=== PATIENT | male | born 1940 | race African-American/Black ===

== ENCOUNTER 2019-03-16 12:04 | Day surgery (SDC) | payer MEDICARE, BC ==
--- NOTE | 2019-03-15 21:35 | Pre-Procedure Note/Attestation ---
Pre-Procedure Note/Attestation Complete Prior to Procedure Planned Procedure: left Procedure Narrative: Removal of cataract and placement of intraocular lens, left eye Indications for Procedure Pre-Operative Diagnosis: dense, combined cataract Attestation I attest that I discussed the nature of the procedure; its benefits; risks and complications; and alternatives (and the risks and benefits of such alternatives ), prior to the procedure, with the patient (or the patient's legal retail field representative). I attest that, if there was a reasonable possibility of needing a blood transfusion, the patient (or the patient's legal retail field representative) was given the [facility] standardized written summary, pursuant to the Jean [place]elv[place] Blood Safety Act ([place] Health and Safety Code # 1645, as amended). I attest that I re-evaluated the patient just prior to the surgery and that there has been no change in the patient's H&P, except as documented below: Preston Hatfield MD Mar 15, 2019 21:35
[2019-03-16] VITALS (10 sets, daily range): BP systolic 152–177; BP diastolic 71–91
[~2019-03-16] VITALS: Ht 175.3 cm; Wt 95.3 kg
[~2019-03-16 12:04] MED LIST: Acetylcholine Injection (OR) ONE; BSS 15ml BTL ONE; BSS 500ml btl ONE; Carbachol 0.01% Op Soln 1.5ml vial ONE; Dexamethasone 4mg/ml vial ONE; EPINEPHrine 1mg/1ml Amp ONE; Fluorescein Strips ONE; Lidocaine 1% MPF 10mg/ml 5ml ONE; Polysporin Opth Oint 3.5gm ONE; Povidone-Iodine 5% opth solution ONE; Pred Forte 1% Opth Susp 1ml ONE; Sodium Hyaluronate 10 mg/ml 0.85ml ONE
[2019-03-16] MEDS ORDERED: Tetracaine 0.5% Opth 4ml Soln ONE ×2 (12:21→12:58)
--- NOTE | 2019-03-16 12:35 | Anethesia Preoperative Eval ---
Anesthesia Pre-op PMH/ROS General Date of Evaluation: Mar 16, 2019 Anesthesiologist: Julian ASA Score: ASA 3 Mallampati Score Class I : Soft palate, uvula, fauces, pillars visible Class II: Soft palate, uvula, fauces visible Class III: Soft palate, base of uvula visible Class IV: Only hard plate visible Mallampati Classification: Class III Surgeon: Liu Diagnosis: left cataract Surgical Procedure: left cataract extraction with iol Anesthesia History: none Family History: no anesthesia problems Allergies: Uncoded Allergies: shellfish (Allergy, Intermediate, 03/15/19) hives Medications: see eMAR Patient NPO?: Yes NPO Date: Mar 15, 2019 NPO Time: 22:00 Past Medical History Cardiovascular: Reports: HTN, other - HLD; Denies: CAD, CO, valve dz, arrhythmia Pulmonary: Denies: asthma, COPD, MAC, other Gastrointestinal/Genitourinary: Reports: GERD; Denies: CRI, ESRD, other Neurologic/Psychiatric: Denies: dementia, CVA, depression/anxiety, TIA, other Endocrine: Reports: DM, hypothyroidism; Denies: steroids, other HEENT: Reports: cataract (L), cataract (R); Denies: glaucoma, [place] (L), [place] (R), other Hematology/Immune: Reports: anemia, other - multiple myeloma; Denies: DVT, bleeding disorder Musculoskeletal/Integumentary: Denies: OA, RA, DJD, DDD, edema, other PSxH Narrative: left eye pterygium excision, prostatectomy Anesthesia Pre-op Phys. Exam Physician Exam see chart Constitutional: NAD Cardiovascular: RRR Respiratory: CTA Airway Exam Mallampati Score: Class III MO: limited ROM: limited Anesthesia Pre-op A/P Labs see chart Studies Pre-op Studies: EKG - nsr with rbbb Risk Assessment & Plan Assessment: ASA III Plan: MAC Status Change Before Surgery: No Pre-Antibiotics Drug: N//A Katina Zuñiga MD Mar 16, 2019 12:35
[2019-03-16] MEDS ORDERED: Tropicamide 1% Opth 15ml Soln ONE (12:58)
[2019-03-16] MEDS ORDERED: Cyclopentolate 1% Opth Sol 2ml ONE (12:58)
[2019-03-16] MEDS ORDERED: Ciprofloxacin Opth Soln 2.5ml ONE (12:58)
[2019-03-16] MEDS ORDERED: Phenylephrine 10% Opth Soln 5ml ONE (12:58)
[2019-03-16] MEDS ORDERED: Tobradex Opth Susp 2.5ml ONE (12:58)
[2019-03-16] MEDS ORDERED: Akten 3.5% 1ml Btl ONE (12:58)
[2019-03-16 13:03] LABS: BASOPHILS % (AUTO) 1.6 % (0.0-2.0); HEMOGLOBIN 8.6 G/DL (14.2-18.0); LYMPHOCYTES % (AUTO) 17.8 % (20.0-45.0); MEAN CORPUSCULAR VOLUME 94 FL (80-99); MONOCYTES % (AUTO) 10.1 % (1.0-10.0); NEUTROPHILS % (AUTO) 69.6 % (45.0-75.0); PLATELET COUNT 164 K/UL (150-450); RED BLOOD COUNT 2.86 M/UL (4.70-6.10); RED CELL DISTRIBUTION WIDTH 17.7 % (11.6-14.8); WHITE BLOOD COUNT 6.1 K/UL (4.8-10.8)
[2019-03-16] MEDS: Akten 3.5% 1ml Btl LEFT EYE SCH ×3 (13:03→13:26)
[2019-03-16] MEDS: Phenylephrine 10% Opth Soln 5ml LEFT EYE SCH ×3 (13:04→13:27)
[2019-03-16] MEDS: Ciprofloxacin Opth Soln 2.5ml LEFT EYE SCH ×3 (13:04→13:26)
[2019-03-16] MEDS: Tropicamide 1% Opth 15ml Soln LEFT EYE SCH ×3 (13:04→13:27)
[2019-03-16] MEDS: Cyclopentolate 1% Opth Sol 2ml LEFT EYE SCH ×3 (13:04→13:27)
[2019-03-16] MEDS: Tetracaine 0.5% Opth 4ml Soln LEFT EYE SCH ×3 (13:05→13:27)
[2019-03-16] MEDS: Tobradex Opth Susp 2.5ml LEFT EYE SCH ×3 (13:05→13:27)
[2019-03-16] MEDS ORDERED: Midazolam 2mg/2ml Inj ONE (13:09)
[2019-03-16] MEDS ORDERED: Propofol 200mg/20ml IV ONE (13:09)
[2019-03-16] MEDS ORDERED: Lidocaine 1% MPF 10mg/ml 5ml ONE (13:09)
[2019-03-16] MEDS ORDERED: fentaNYL 100 mcg/2 mL IV ONE (13:09)
[2019-03-16] MEDS ORDERED: DiphenhydrAMINE 50mg/ml Inj ONE (13:10)
[2019-03-16 13:17] LABS: INR 1.1 (0.9-1.1)
[2019-03-16 13:19] LABS: ANION GAP 12 mmol/L (5-15); BLOOD UREA NITROGEN 31 mg/dL (7-18); CALCIUM 8.2 MG/DL (8.5-10.1); CARBON DIOXIDE 24 MMOL/L (21-32); CHLORIDE 108 MMOL/L (98-107); CREATININE 3.1 MG/DL (0.55-1.30); POTASSIUM 3.9 MMOL/L (3.5-5.1); SODIUM 144 MMOL/L (136-145)
[2019-03-16] MEDS ORDERED: LR 1000ml ONE (14:00)
[2019-03-16] MEDS ORDERED: Sterile Water Irrig 1000ml IRRIG ONE (14:00)
[2019-03-16] MEDS ORDERED: NS Irrig 1000ml ONE (14:00)
[2019-03-16] MEDS ORDERED: LR 1000ml 1,000 ML IVLG SCH (14:04)
[2019-03-16] MEDS ORDERED: DiphenhydrAMINE 50mg/ml Inj IVP PRN (14:15)
[2019-03-16] MEDS ORDERED: EPINEPHrine 1mg/1ml Amp ONE (14:38)
[2019-03-16] MEDS ORDERED: BSS 500ml btl ONE (14:38)
[2019-03-16] MEDS ORDERED: Sodium Hyaluronate 10 mg/ml 0.85ml ONE (14:47)
--- NOTE | 2019-03-16 15:06 | Immediate Post-Op Evaluation ---
Immediate Post-Op Evalulation Immediate Post-Op Evalulation Procedure: left cataract extraction with iol Date of Evaluation: Mar 16, 2019 Time of Evaluation: 15:08 IV Fluids: 200 Blood Products: 0 Estimated Blood Loss: 0 Urinary Output: 0 Blood Pressure Systolic: 165 Blood Pressure Diastolic: 75 Pulse Rate: 52 Respiratory Rate: 16 O2 Sat by Pulse Oximetry: 100 Temperature (Fahrenheit): 97 Pain Score (1-10): 0 Nausea: No Vomiting: No Complications 0 Patient Status: awake, reacts, patent, none Hydration Status: adequate Drug: N/A Katina Zuñiga MD Mar 16, 2019 15:06
--- NOTE | 2019-03-16 15:07 | 48 Hour Post Anesthesia Eval ---
Post Anesthesia Evaluation Procedure: left cataract extraction with iol Date of Evaluation: Mar 16, 2019 Airway: patent Nausea: No Vomiting: No Hydration Status: adequate Cardiopulmonary Status: at baseline Mental Status/LOC: patient returned to baseline Post-Anesthesia Complications: 0 Follow-up care needed: ready to discharge Katina Zuñiga MD Mar 16, 2019 15:07
--- NOTE | 2019-03-16 15:10 | Discharge Instructions ---
Discharge Instructions Discharge Instructions Follow Up Orders Wear shield at all times except to place eye drops Continue pre op eye drops Followup in Dr Hatfield's office tomorrow For Congestive Heart Failure Reminder Report to your physician any weight gain of 5 pounds or more in one week. Preston Hatfield MD Mar 16, 2019 15:10
--- NOTE | 2019-03-16 15:12 | Brief Operative Note ---
Immediate Post Operative Note Operative Note Pre-op Diagnosis: dense, combined cataract Procedure: Phaco PC IOL OS Use of 7.0 Malyugian ring Post-op Diagnosis: same as pre-op plus - Pt with h/o flomax use and has miotic pupil Surgeon: Dar Hatfield MD Anesthesiologist: Dr Villarreal Anesthesia: local, MAC Specimen: none Complications: none Fluids: see chart Implant(s) used?: Yes - jenny [id number] 22.5 Preston Hatfield MD Mar 16, 2019 15:12
--- NOTE | 2019-03-18 11:54 | Pre-op HX & Phy Repo 2 SIG ---
DATE OF ADMISSION: 03/16/2019 PRESURGICAL INTERNAL MEDICINE HISTORY AND PHYSICAL DATE OF EVALUATION: 03/16/2019 REASON FOR EVALUATION: I was asked by Dr. Preston Hatfield to see this 78-year-old male, who is going for elective surgery on the left eye. The patient has nuclear sclerotic left eye cataract. Please see full Ophthalmology History and Physical by Dr. Preston Hatfield. The patient was evaluated, chart was reviewed at [facility] outpatient procedure department. The patient is a 78-year-old male, alert, well-developed, overweight. BMI is 31.0 kg/m sq. Complained of progressive vision loss on the left eye due to cataract. PAST MEDICAL HISTORY AND REVIEW OF SYSTEMS: Remarkable for history of hypertension, history of palpitations, GERD, history of hypothyroidism, renal insufficiency, multiple myeloma in the stage of recovery, history of diabetes, mellitus type 2. Denies history of heart attack or stroke. PAST SURGICAL HISTORY: Left eye cataract surgery, prostatectomy for BPH, coronary angiogram, and laser treatment for palpitations. FAMILY HISTORY: Mother from stomach cancer and father from bone cancer. ALLERGIES: Shellfish, developed . PRESENT MEDICATION: Losartan 25 mg, amlodipine 5 mg, amiodarone 200 mg, acyclovir 200 mg, baby aspirin 81 mg daily and stopped six days ago, atorvastatin 20 mg, calcitriol 0.25 mcg, calcium and magnesium supplements, carvedilol 25 mg daily, Eliquis 2.5 mg daily and stopped six days ago, fluconazole daily, Klor-Con 10 mEq daily, lansoprazole 20 mg daily, levothyroxine 25 mcg daily, ranitidine 150 mg twice a day, tamsulosin 0.4 mg at bedtime. HABITS: The patient smoked for about 10 years . Denied alcohol or street drug use. PHYSICAL EXAMINATION: GENERAL: Alert, overweight male, weight 210 pounds and 5 feet 9 inches tall. BMI is 31 kg/m sq. VITAL SIGNS: Blood pressure 172/84, temperature 97, pulse 50, O2 saturation 99% on room air. SKIN: Dry, clear, warm. No rashes. No ulcers. HEENT: Head is normocephalic, bold. Mouth, clear and moist. Tongue midline. Eyes, full description per Dr. Preston Hatfield. Ears, nose, no discharge. NECK: Supple. No jugular vein distention. Carotids artery +2. Trachea midline. CHEST: No deformity or asymmetry. LUNGS: Clear to auscultation to percussion. No rales or rhonchi. HEART: Sinus bradycardia. No ectopy. No murmur. No S3, S4. ABDOMEN: Soft, obese. Liver and spleen not enlarged. No rebound. EXTREMITIES: No varicose vein. No calf tenderness. No edema. GENITOURINARY: Normal for gender. Post prostatectomy. NEUROLOGIC: No tremor. No nystagmus. No asymmetry. LABORATORY AND DIAGNOSTIC DATA: Electrocardiogram dated 02/10/2019, normal sinus rhythm, left axis deviation, right bundle-branch block with left-axis deviation. The patient did not eat or drink from 8:30 p.m. yesterday, fasting blood sugar 178 mg/dL. White blood cells of 6.1, hemoglobin 8.6, hematocrit 27.0, red blood cells 2.86. BUN 31, creatinine 3.1. Potassium 3.9, sodium 144. PT 11.3, INR 1.1. Blood sugar 175 mg/dL. IMPRESSION: 1. Cataract, left eye. 2. Hypertension. 3. Diabetes mellitus. 4. Chronic renal disease. 5. Anemia. 6. Hypothyroidism. 7. Type 2 diabetes mellitus, not treated. 8. multiple myeloma. 9. Sinus bradycardia with history of palpitations. PLAN: Cataract extraction, left eye with intraocular lens implant per Dr. Preston Hatfield. CONCLUSION: The patient has multiple medical problems include history of diabetes, multiple myeloma, and chronic renal disease and the complication of renal insufficiency and anemia, the patient did not eat or drink from last night Thank you very much, Dr. Hatfield, for privilege to participate in presurgical care of this interesting patient. Monie Thomas M.D. DR: ALFRED JOB#: [id number] CC:
--- NOTE | 2019-03-18 11:54 | Operative Note - Dictated ---
DATE OF OPERATION: 03/16/2019 SURGEON: Preston Hatfield M.D. BAR MACHINE OPERATOR SURGEON: None. ANESTHESIOLOGIST: Dr. Villarreal. ANESTHESIA: Local/standby/monitored anesthesia care. PREOPERATIVE DIAGNOSES: 1. Cataract, senile, combined, left eye. 2. Floppy iris syndrome. POSTOPERATIVE DIAGNOSES: 1. Cataract, senile, combined, left eye. 2. Floppy iris syndrome. PROCEDURES: 1. Phacoemulsification of cataract, left eye. 2. Placement of posterior chamber intraocular lens, left eye (model [id number], power 22.5). 3. Use of Malyugin ring (7.0 mm). SPECIMENS: None. COMPLICATIONS: None. INDICATIONS FOR SURGERY: The patient has had the painless progressive decrease in visual acuity in the left eye secondary to cataract. The patient understands the risk of surgery including infection, bleeding, need for further surgery, loss of vision, no improvement in vision, loss of the eye, loss of life, glaucoma, and retinal detachment, understands these risks and elects to proceed with surgery. FINDINGS: The patient had a floppy iris syndrome with the pupil dilated minimally to approximately 4 mm and necessitated the use of the Malyugin ring. The patient had a +3 cortical cataract as well as a +4 nuclear cataract, and +1 to 2 posterior subcapsular cataract. OPERATIVE NOTE: After informed consent was obtained, the patient was brought into the operative room and placed in supine position. Cardiac and respiratory monitors were attached. A time-out was performed and all criteria were met and everyone in the room agreed. The left eye was then draped and prepped in sterile manner for ocular surgery. A lid speculum was placed in eye. A 1% lidocaine preservative-free was injected at the approximate 2 o'clock limbus. A conjunctiva peritomy from approximately 2 o'clock to 3 o'clock was made and dissected posteriorly. Hemostasis was maintained with bipolar cautery. A 2.8 mm limbal incision was made centered approximately 2:30 and dissected anteriorly. A paracentesis was made at approximately 5:30 and Shugarcaine was injected into the anterior chamber. Healon was then injected into the anterior chamber. The anterior chamber was then entered using a 2.8 mm keratome through the limbal incision. Because of the small pupil and it did not dilate well despite using 1% atropine drops, a 7.0 Malyugin ring was placed and hooked onto the 4 points of the pupillary margin. An anterior capsulorrhexis was then performed. Hydrodissection and hydrodelineation of the lens was then performed. The lens was then phacoemulsified using divide and conquer four-quadrant technique. This was a very dense cataract. Cortical material was then aspirated. The lens was taken from its package, placed into the cartridge and tip of the cartridge was placed through the limbal incision and the lens was injected into the capsular bag and centered nicely with a Sinskey hook. The lens was placed into the 3 o'clock and 9 o'clock meridian. The Malyugin ring was then removed and Miostat was injected into the anterior chamber to bring the pupil round. One 10-0 nylon interrupted suture was then placed through the limbal incision and the knot was rotated and buried. The wounds were hydrated closed. The wounds were checked and found to be watertight. The conjunctiva was closed with forceps cautery. The lid speculum and drapes were removed from the eye and drops of TobraDex, ciprofloxacin and Pred Forte were applied to the eye followed by Maxitrol ointment and then a shield. The patient tolerated the procedure well and left the operating room awake, alert, and in stable condition. Preston Hatfield M.D. DR: AKANKSHA JOB#: [id number] CC:
== END 2019-03-16 17:00 | disposition home or self-care (01) ==
LOC: SUR 12:04
DX: H25.12 Age-related nuclear cataract, left eye (principal); H25.012 Cortical age-related cataract, left eye; H21.81 Floppy iris syndrome; H25.042 Posterior subcapsular polar age-related cataract, left eye; E66.3 Overweight; R00.1 Bradycardia, unspecified; I45.10 Unspecified right bundle-branch block; I12.9 Hypertensive chronic kidney disease with stage 1 through stage 4 chronic kidney disease, or unspecified chronic kidney disease; E11.22 Type 2 diabetes mellitus with diabetic chronic kidney disease; N18.9 Chronic kidney disease, unspecified; D63.1 Anemia in chronic kidney disease; Z79.01 Long term (current) use of anticoagulants; Z79.899 Other long term (current) drug therapy; Z79.82 Long term (current) use of aspirin; Z91.013 Allergy to seafood; Z68.31 Body mass index [BMI] 31.0-31.9, adult; E03.9 Hypothyroidism, unspecified; Z90.79 Acquired absence of other genital organ(s)
CPT/HCPCS: 36415; 66982; 80048; 82962; 85025; 85610; 85730; J0171; J1100; J1200; J2250; J2704; J3010; V2632; 94003; 94150